=== PATIENT | female | born 1950 | race Caucasian/White ===

== ENCOUNTER 2018-03-10 15:08 | Emergency (ER) | payer OTHER ==
[~2018-03-10] VITALS: Ht 165.1 cm; Wt 44.5 kg
[2018-03-10] MEDS ORDERED: TOPROL XL50 M1 (16:57)
[2018-03-10] MEDS ORDERED: NEURONTIN800 MG (16:57)
== END 2018-03-10 19:49 | disposition home or self-care (01) ==
LOC: ER 15:08
DX: K29.60 Other gastritis without bleeding (principal)

== ENCOUNTER 2020-11-05 09:20 | Emergency (ER) | payer OTHER ==
[~2020-11-05] VITALS: Ht 165.1 cm; Wt 59.9 kg
[~2020-11-05 09:20] MED LIST: NEURONTIN800 MG; TOPROL XL50 M1
[2020-11-05] MEDS ORDERED: TOPROL XL50 M1 PO (09:37)
[2020-11-05] MEDS ORDERED: HORIZANT600 MG PO (09:37)
[2020-11-05] MEDS ORDERED: SIMVASTATIN5 MG PO (09:37)
[2020-11-05] MEDS ORDERED: PEPCID AC20 MG (09:38)
[2020-11-05] MEDS ORDERED: ALTACE2.5 MG PO (09:38)
[2020-11-05] MEDS ORDERED: CARAFATE1 GM PO (09:38)
[2020-11-05] MEDS ORDERED: IBANDRONATE SO150 MG PO (09:39)
[2020-11-05] MEDS ORDERED: MEGESTROL ACETA40 MG PO (09:39)
[2020-11-05] MEDS ORDERED: CIPRO500 MG PO (14:33)
== END 2020-11-05 14:37 | disposition home or self-care (01) ==
LOC: ER
DX: R42 Dizziness and giddiness (principal); R53.1 Weakness; N39.0 Urinary tract infection, site not specified; B96.29 Other Escherichia coli [E. coli] as the cause of diseases classified elsewhere; R31.0 Gross hematuria